=== PATIENT | female | born 1990 | race Caucasian/White ===

== ENCOUNTER → 2022-11-28 | Emergency (ER) | payer MEDICAID ==
[~2022-11-28] VITALS: Ht 152.4 cm; Wt 47.6 kg
[2022-11-28 16:08] VITALS: BP_SYST 108; PULSE 97; RESP 18; TEMP 98.3; O2SAT 96
--- NOTE | 2022-11-28 17:00 | NUR ---
Pt brought by BLS under influence/ETOH while she was at [employer] today, pt sleeping at this time, responds to painful stimuli, VSS, skin pink and warm, no N/V noted.
--- NOTE | 2022-11-28 17:56 | NUR ---
PT IS AOX4, AMBULATES WITH STEADY GAIT TO WAITING ROOM
== END | disposition left against medical advice (07) ==
LOC: SED 16:06
DX: F10.129 Alcohol abuse with intoxication, unspecified (principal); Z53.21 Procedure and treatment not carried out due to patient leaving prior to being seen by health care provider; Y90.6 Blood alcohol level of 120-199 mg/100 ml
CPT/HCPCS: 99281